=== PATIENT | female | born 1965 | race Caucasian/White ===

== ENCOUNTER → 2016-11-14 | Outpatient (CLI) | payer BC ==
[~2016-11-14] MED LIST: NITR-5 PO; TRAM-10 PO
== END | disposition home or self-care (01) ==
LOC: C.PAPS 13:47
PROVIDERS: ATTEND Obstetrics & Gynecology
DX: Z01.419 Encounter for gynecological examination (general) (routine) without abnormal findings (principal)

== ENCOUNTER → 2017-06-05 | Outpatient (CLI) | payer BC ==
--- NOTE | 2017-06-05 11:35 | DIAGNOSTIC IMAGING REPORT ---
KNEE 3 VIEWS CLINICAL HISTORY: 51 years-old Female presenting with KNEE PAIN. TECHNIQUE: Frontal, lateral, and sunrise views of the left knee were obtained. COMPARISON: Comparison made to plain radiographs of the right knee performed the same day. FINDINGS: No acute fracture or malalignment. No knee joint effusion. No significant degenerative changes evident. Regional soft tissues within normal limits. IMPRESSION: No significant osseous abnormality of the left knee. Electronically signed by: Tigre Cameron M.D. 06/05/2017 11:34 AM Dictated Date/Time: 06/05/2017 11:33 AM
--- NOTE | 2017-06-05 11:36 | DIAGNOSTIC IMAGING REPORT ---
HAND 2 VIEWS CLINICAL HISTORY: 51 years-old Female presenting with RT HAND PAIN. TECHNIQUE: Frontal and lateral views of the right hand were obtained. COMPARISON: Comparison made to plain radiographs of the left hand performed the same day. FINDINGS: No acute fracture or malalignment. No degenerative change. Regional soft tissues normal. IMPRESSION: No significant osseous abnormality of the right hand. Electronically signed by: Tigre Cameron M.D. 06/05/2017 11:35 AM Dictated Date/Time: 06/05/2017 11:34 AM
--- NOTE | 2017-06-05 11:40 | DIAGNOSTIC IMAGING REPORT ---
KNEE 3 VIEWS CLINICAL HISTORY: Knee pain. COMPARISON: None FINDINGS: Alignment of the right knee is anatomic with the exception of slight lateral patellar tilt. There is no fracture or joint effusion. No suspicious osseous lesion is present. There is mild osteophytosis within the medial and patellofemoral compartments. There is mild patellofemoral compartment joint space narrowing. IMPRESSION: 1. No acute fracture or joint effusion of the right knee. 2. Mild osteoarthritis within the medial and patellofemoral compartments of the right knee. Electronically signed by: Tyler Farmer M.D. 06/05/2017 11:39 AM Dictated Date/Time: 06/05/2017 11:38 AM
--- NOTE | 2017-06-05 11:46 | DIAGNOSTIC IMAGING REPORT ---
LEFT HAND 2 VIEWS CLINICAL HISTORY: Left hand pain COMPARISON: None. DISCUSSION: No acute fractures or dislocations are visualized. There is a bone island within the distal phalanx of the third finger. There are no erosive changes. IMPRESSION: 1. No fractures or dislocations identified 2. No erosive or destructive changes are visualized Electronically signed by: Yifan Raman M.D. 06/05/2017 11:44 AM Dictated Date/Time: 06/05/2017 11:43 AM
== END | disposition home or self-care (01) ==
LOC: C.RAD1850 08:50
PROVIDERS: ATTEND Internal Medicine
DX: M25.569 Pain in unspecified knee (principal); M79.643 Pain in unspecified hand

== ENCOUNTER 2017-07-16 18:44 | Emergency (ER) | payer BC ==
[~2017-07-16] VITALS: Ht 152.4 cm; Wt 58.7 kg
[2017-07-16 18:50] VITALS: TEMP 36.6; Ht 152.4 cm; Wt 58.7 kg
[2017-07-16] MEDS ORDERED: ATOR10TA82 PO (19:28)
[2017-07-16 19:50] LABS: URINE APPEARANCE CLEAR (CLEAR); URINE BILIRUBIN NEG (NEG); URINE COLOR YELLOW; URINE EPITHELIAL CELL AUTO >30 /lpf (0-5); URINE NITRITE NEG (NEG); URINE SPECIFIC GRAVITY 1.005 (1.000-1.030); UROBILINOGEN NEG (NEG); ZZUR CULT IF INDIC CLEAN CATCH NO
[2017-07-16 19:53] LABS: MANUAL MICROSCOPIC REQUIRED? NO
[2017-07-16 19:54] LABS: REVIEW REQ? YES
[2017-07-16] MEDS ORDERED: CEFDINIR 300 MG CAP PO STA (20:01)
[2017-07-16] MEDS ORDERED: CEFD300C2 PO (20:02)
[2017-07-16 20:16] VITALS: BP 113/65; PULSE 82; O2SAT 100
--- NOTE | 2017-07-16 23:52 | EMERGENCY ROOM VISIT NOTE ---
ED Visit Note First contact with patient: 19:02 CHIEF COMPLAINT: Frequent and painful urination HISTORY OF PRESENT ILLNESS: This 51-year-old female presents to the emergency department complaining of increased frequency of urination, burning pain with urination, and a feeling of incomplete voiding worsening of the past 2 days. The patient passes very small volumes of urine with each episode of voiding. The patient does not have abdominal pain. They deny back pain, fever, or vaginal discharge. The patient has had frequent urinary tract infections in the past. Patient feels they are not at risk for STIs. REVIEW OF SYSTEMS: A 6 system review of systems was completed with positives and pertinent negatives listed in the HPI. ALLERGIES: See EMR MEDICATIONS: See EMR PMH: Otherwise healthy SOCIAL HISTORY: Lives locally PHYSICAL EXAM: Vital Signs: Reviewed Nurse's notes, vital signs stable. GENERAL : Female, in no acute distress, they do not appear toxic, well-developed, well- nourished. ABDOMEN: Positive bowel sounds x 4. The abdomen is soft, mildly tender in the suprapubic area, but no masses or organs are felt. There is no CVA tenderness. The skin is clear. NEURO: Alert and oriented to person place and time. EMERGENCY DEPARTMENT COURSE: Physical exam and history were performed. Nursing notes and EMR were reviewed. Urine was collected and appears consistent with infection with culture pending. The patient is evidently had several UTIs over the past few months. She has been on Cipro and Macrobid. I will start her on Omnicef and have her follow with either urology or her [facility] due to the recurrence of her symptoms. She was otherwise invited back to the ER with any new, worsening, or concerning symptoms. Current/Historical Medications Scheduled Atorvastatin (Lipitor), 10 MG PO Q2D Cefdinir (Omnicef), 300 MG PO Q12H Allergies Coded Allergies: Nickel (Verified Allergy, Mild, RASH, 07/16/17) Uncoded Allergies: IV CONTRAST DYE (Allergy, Mild, RASH, 07/16/17) Vital Signs Date Time Temp Pulse Resp B/P (MAP) Pulse Ox O2 Delivery O2 Flow Rate FiO2 07/16/17 20:16 82 20 113/65 100 07/16/17 18:50 36.6 88 20 119/77 99 Room Air Laboratory Results Test 07/16/17 19:07 Urine Color YELLOW Urine Appearance CLEAR (CLEAR) Urine pH 8.0 (4.5-7.5) Urine Specific Braham 1.005 (1.000-1.030) Urine Protein NEG (NEG) Urine Glucose (UA) NEG (NEG) Urine Ketones NEG (NEG) Urine Occult Blood TRACE (NEG) Urine Nitrite NEG (NEG) Urine Bilirubin NEG (NEG) Urine Urobilinogen NEG (NEG) Urine Leukocyte Esterase MODERATE (NEG) Urine WBC (Auto) 5-10 /hpf (0-5) Urine RBC (Auto) 0-4 /hpf (0-4) Urine Hyaline Casts (Auto) 1-5 /lpf (0-5) Urine Epithelial Cells (Auto) >30 /lpf (0-5) Urine Bacteria (Auto) NEG (NEG) Urine Renal Epithelial Cells 0-5 /lpf (0-5) Urine Test NEG (NEG) Medications Administered Medications (Trade) Dose Ordered Sig/Shayna Route Start Time Stop Time Status Last Admin Dose Admin Cefdinir (Omnicef Cap) 300 mg ONE STAT PO 07/16/17 20:01 07/16/17 20:02 DC 07/16/17 20:13 300 MG Departure Information Impression Primary Impression: Urinary tract infection Dispostion Home / Self-Care Prescriptions Cefdinir (OMNICEF) 300 Mg Cap 300 MG PO Q12H for 7 Days, #14 CAP Prov: Brandyn Campo PA-C 07/16/17 Referrals Jacinto Harris M.D. (PCP) Forms HOME CARE DOCUMENTATION FORM, IMPORTANT VISIT INFORMATION Patient Instructions My [facility] Additional Instructions You were seen and evaluated today on an emergency basis only. This is not a substitute for, or an effort to provide, complete comprehensive medical care. It is not possible to recognize and treat all injuries or illnesses in a single emergency department visit. For this reason it is recommended that you followup with [facility] or urology for ongoing care and evaluation. Take Omnicef 300 mg twice daily for the next 7 days. You are welcome to return to the emergency department anytime with new, worsening, or concerning symptoms.
== END 2017-07-16 20:13 | disposition home or self-care (01) ==
LOC: C.EDB 18:45 → C.EDD 20:13
DX: N39.0 Urinary tract infection, site not specified (principal); Z79.899 Other long term (current) drug therapy

== ENCOUNTER → 2017-07-31 | Day surgery (SDC) | payer BC ==
[2017-07-23 09:22] VITALS: Ht 154.9 cm; Wt 56.4 kg
[~2017-07-31] VITALS: Ht 154.9 cm; Wt 56.4 kg
[~2017-07-31] MED LIST changes: +ATOR10TA82 PO; +LIDOCAINE HCL 2% 2 ML VIAL (20MG/ML) ONE; -NITR-5 PO; +PROPOFOL IV EMULSION 10 MG/ML 20 ML VIAL IV ONE; +SODIUM CHLORIDE 0.9% 500ML 500 ML IV ONE; -TRAM-10 PO
--- NOTE | 2017-07-31 09:38 | Endo History and Physical ---
History & Physical Date of Service: Jul 31, 2017. Chief Complaint: Screening Referring Physician: Pro History of Present Illness 51 yo female who presents for screening colonoscopy. Past Surgical History Hx Cardiac Surgery: No Hx Internal Defibrillator: No Hx Pacemaker: No Hx Abdominal Surgery: Yes ( X 2, TUBAL LIGATION) Hx of Implantable Prosthesis: No Hx Post-Op Nausea and Vomiting: No Hx Cancer Surgery: No Hx Thoracic Surgery: No Hx Orthopedic: No Hx Urinary Tract Surgery: No Family History None Social History Smoking Status: Never Smoker Hx Substance Use: No Hx Alcohol Use: No Allergies Coded Allergies: Nickel (Verified Allergy, Mild, RASH, 07/31/17) Iodinated Diagnostic Agents (Verified Allergy, Unknown, HIVES, 07/31/17) Current Medications Reported Home Medications Medications Dose Route/Sig Max Daily Dose Days Date Category Lipitor (Atorvastatin Calcium) 10 Mg Tab 10 Mg PO 3XWK 07/16/17 Reported Vital Signs Weight (Kilograms): 56.36 Height (Feet): 5 Height (Inches): 1 Date Time Temp Pulse Resp B/P (MAP) Pulse Ox O2 Delivery O2 Flow Rate FiO2 07/31/17 09:16 36.7 84 16 101/67 (78) 100 Room Air Physical Exam General Appearance: WD/WN, no apparent distress Respiratory/Chest: Auscultation: breath sounds normal Cardiovascular: Heart Auscultation: RRR Abdomen: Bowel Sounds: normal Inspection & Palpation: soft, non-distended, no tenderness, guarding & rebound Assessment and Plan Assessment: 51 yo female who presents for screening colonoscopy. Plan: Proceed with colonoscopy.
--- NOTE | 2017-07-31 10:07 | Discharge Instructions ---
Endoscopy Patient Instructions Date / Procedure(s) Performed Jul 31, 2017. Colonoscopy Allergy Information Coded Allergies: Nickel (Verified Allergy, Mild, RASH, 07/31/17) Iodinated Diagnostic Agents (Verified Allergy, Unknown, HIVES, 07/31/17) Discharge Date / Findings Jul 31, 2017. Internal hemorrhoids Medication Instructions OK to resume all medications today as prescribed Reported Home Medications Medications Dose Route/Sig Max Daily Dose Days Date Category Lipitor (Atorvastatin Calcium) 10 Mg Tab 10 Mg PO 3XWK 07/16/17 Reported Provider Instructions Activity Restrictions - No exercising or heavy lifting for 24 hours. - Do not drink alcohol the day of the procedure. - Do not drive a car or operate machinery until the day after the procedure. - Do not make any important decisions or sign important papers in 24 hours after the procedure. Following Day: - Return to full activity which may include returning to work/school. Diet Start your diet with liquids and light foods (jello, soup, juice, toast). Then eat your usual diet if not nauseated. Treatment For Common After Affects For mild abdominal pain, bloating, or excessive gas: - Rest - Eat lightly - Lie on right side Follow-Up Information Follow-up with Proc as scheduled Anesthesia Information What You Should Know You have had a procedure that required some medicine to reduce anxiety and discomfort. This treatment is called moderate sedation. After receiving the treatment, you may be sleepy, but you will be able to breathe on your own. The effects of the treatment may last for several hours. Follow these instructions along with Activity/Diet recommendations noted above: * Do NOT do anything where dizziness or clumsiness would be dangerous. * Rest quietly at home today, then you can be up and about tomorrow. * Have a responsible person stay with you the rest of today. * You may have had an I.V. today. If so, you may take the dressing off later today. Recommendations Call your doctor if: * Trouble breathing * Continuous vomiting for more than 24 hours * Temperature above 101 degrees * Severe abdominal pain or bloating * Pain not relieved by pain medicine ordered * There is increased drainage or redness from any incision * A large amount of rectal bleeding greater than 2-3 tablespoons. (If you had a polyp/s removed or have hemorrhoids, a small amount of blood - from the rectum is to be expected.) * You have any unanswered questions or concerns. IN THE EVENT OF A SERIOUS EMERGENCY, GO TO THE NEAREST EMERGENCY ROOM Your discharge instructions were prepared by provider Miguel Huerta. Patient Instructions Signature Page Ambrose Boyle Patient (or Guardian) Signature/Date: I have read and understand the instructions given to me by my caregivers. Caregiver/RN/Doctor Signature/Date: The above-named patient and/or guardian has received patient instructions on this date. + Original Patient Signature Page (only) stays with chart. Please make copy for patient.
--- NOTE | 2017-07-31 10:26 | Anesthesiology Progress Note ---
Anesthesia Post Op Note Date & Time Jul 31, 2017 at 10:26 Vital Signs Pain Intensity: 0 Vital Signs Past 12 Hours Date Time Temp Pulse Resp B/P (MAP) Pulse Ox O2 Delivery O2 Flow Rate FiO2 07/31/17 10:19 75 16 92/65 (74) 100 Room Air 07/31/17 10:04 83 16 96/58 (71) 99 Room Air 07/31/17 09:16 36.7 84 16 101/67 (78) 100 Room Air Notes Mental Status: alert / awake / arousable, participated in evaluation Pt Amnestic to Procedure: Yes Nausea / Vomiting: adequately controlled Pain: adequately controlled Airway Patency, RR, SpO2: stable & adequate BP & HR: stable & adequate Hydration State: stable & adequate Anesthetic Complications: no major complications apparent
[2017-07-31 10:34] VITALS: BP 95/65; PULSE 67; O2SAT 98
--- NOTE | 2017-07-31 11:13 | GI REPORT ---
Procedure Date: 07/31/2017 9:33 AM Procedure: Colonoscopy Indications: Screening for colorectal malignant neoplasm Medicines: Monitored Anesthesia Care Complications: No immediate complications. Estimated Blood Loss: Estimated blood loss: none. Procedure: Pre-Anesthesia Assessment: - Prior to the procedure, a History and Physical was performed, and patient medications and allergies were reviewed. The patient's tolerance of previous anesthesia was also reviewed. The risks and benefits of the procedure and the sedation options and risks were discussed with the patient. All questions were answered, and informed consent was obtained. Prior Anticoagulants: The patient has taken no previous anticoagulant or antiplatelet agents. ASA Grade Assessment: II - A patient with mild systemic disease. After reviewing the risks and benefits, the patient was deemed in satisfactory condition to undergo the procedure. After I obtained informed consent, the scope was passed under direct vision. Throughout the procedure, the patient's blood pressure, pulse, and oxygen saturations were monitored continuously. The Scope was introduced through the anus and advanced to the terminal ileum. The colonoscopy was performed without difficulty. The patient tolerated the procedure well. The quality of the bowel preparation was good. The terminal ileum, ileocecal valve, appendiceal orifice, and rectum were photographed. Findings: Non-bleeding internal hemorrhoids were found during retroflexion. The hemorrhoids were small. The exam was otherwise without abnormality. Impression: - Non-bleeding internal hemorrhoids. - The examination was otherwise normal. - No specimens collected. Recommendation: - Resume previous diet. - Continue present medications. - Repeat colonoscopy in 10 years for surveillance. - Return to primary care physician as previously scheduled. Miguel Huerta DO 07/31/2017 11:12:54 AM This report has been signed electronically. Note Initiated On: 07/31/2017 9:33 AM I attest to the content of the Intraoperative Record and orders documented therein, exceptions below
== END | disposition home or self-care (01) ==
LOC: C.GI 08:49
PROVIDERS: ATTEND Internal Medicine
DX: Z12.11 Encounter for screening for malignant neoplasm of colon (principal); K64.8 Other hemorrhoids

== ENCOUNTER → 2017-09-20 | Outpatient (CLI) | payer OTHER ==
[~2017-09-20] MED LIST changes: +DIAZ2TAB PO; +IBUP-1451 PO; -LIDOCAINE HCL 2% 2 ML VIAL (20MG/ML) ONE; -PROPOFOL IV EMULSION 10 MG/ML 20 ML VIAL IV ONE; -SODIUM CHLORIDE 0.9% 500ML 500 ML IV ONE
--- NOTE | 2017-09-21 14:36 | MAMMOGRAPHY REPORT ---
BILATERAL DIGITAL SCREENING MAMMOGRAM TOMOSYNTHESIS WITH CAD: 09/20/2017 CLINICAL HISTORY: Routine screening. TECHNIQUE: Breast tomosynthesis in addition to standard 2D mammography was performed. Current study was also evaluated with a Computer Aided Detection (CAD) system. COMPARISON: Comparison is made to exams dated: 06/15/2016 mammogram, 06/10/2015 mammogram, 10/06/2013 m ammogram, 10/02/2012 mammogram, 02/02/2011 mammogram, and 12/30/2009 mammogram - [facility] enter. BREAST COMPOSITION: There are scattered areas of fibroglandular density in both breasts. Mild invol utional changes comparing to more remote prior mammograms. FINDINGS: No suspicious mass, architectural distortion or cluster of microcalcifications is seen. IMPRESSION: ACR BI-RADS CATEGORY 1: NEGATIVE There is no mammographic evidence of malignancy. A 1 year screening mammogram is recommended. The pa tient will receive written notification of the results. Approximately 10% of breast cancers are not detected with mammography. A negative mammographic report should not delay biopsy if a clinically suggestive mass is present. Cheryl Mak M.D. ay/:09/20/2017 15:00:47 Master Mechanic: Pauly MAYS(R)(M), [facility] letter sent: Normal 1/2 BI-RADS Code: ACR BI-RADS Category 1: Negative
== END | disposition home or self-care (01) ==
LOC: C.MAMM 14:04
PROVIDERS: ATTEND Obstetrics & Gynecology
DX: Z12.31 Encounter for screening mammogram for malignant neoplasm of breast (principal)

== ENCOUNTER → 2017-11-16 | Outpatient (CLI) | payer OTHER ==
[~2017-11-16] MED LIST changes: -DIAZ2TAB PO; -IBUP-1451 PO
== END | disposition home or self-care (01) ==
LOC: C.PAPS 11:23
PROVIDERS: ATTEND Obstetrics & Gynecology
DX: Z12.4 Encounter for screening for malignant neoplasm of cervix (principal)